=== PATIENT | male | born 1955 | race Hispanic/Latino ===

== ENCOUNTER → 2017-09-11 | Outpatient (CLI) | payer OTHER ==
[~2017-09-11] MED LIST: FENTANYL CITRATE/PF 100MCG/2 ML INJ ONE; GABAPENTIN400 MG PO; GELATIN SPONGE 12-7MM ONE; LISINOPRIL10 MG PO; MELOXICAM7.5 MG PO; METOPROLOL SUCC25 MG PO; MIDAZOLAM HCL 2 MG/2 ML VIAL ONE; SIMVASTATIN20 MG PO; TRAMADOL; TRAZODONE HCL100 MG PO
[2017-09-11 08:49] LABS: BASOPHILS % 0.3 % (0.0-1.0); EOSINOPHILS # (AUTO) 0.3 (0.0-0.4); EOSINOPHILS % 3.1 % (0.0-6.0); HEMATOCRIT 34.3 % (38.2-49.6); HEMOGLOBIN 12.3 g/dL (14.0-18.0); LYMPHOCYTES # (AUTO) 2.7 (1.0-3.2); LYMPHOCYTES % 30.6 % (18.0-39.1); MEAN CORPUSCULAR HEMOGLOBIN 33.7 pg (28-32); MEAN CORPUSCULAR HGB CONC 35.9 g/dL (31-35); MONOCYTES # (AUTO) 0.8 (0.2-0.8); MONOCYTES % 9.4 % (4.4-11.3); NEUTROPHILS % 55.9 % (38.7-80.0); PLATELET COUNT 278 x10e3/uL (140-360); RED BLOOD COUNT 3.65 x10e6/uL (4.3-5.7); RED CELL DISTRIBUTION WIDTH 12.1 % (11.7-14.4)
[2017-09-11 09:02] LABS: INR 0.99; PROTHROMBIN TIME 12.3 seconds (11.9-14.5)
--- NOTE | 2017-09-11 12:07 | Diagnostic Imaging Report ---
PROCEDURE:CT GUIDED NEEDLE PLACEMENT COMPARISON:None. Preprocedure diagnosis: Left femoral sclerotic lesion, suspect enchondroma Post procedure diagnosis: Left femoral sclerotic lesion, suspect enchondroma Sedation/anesthesia: 1.5 mg Versed intravenous, 100 mcg fentanyl intravenous. The patient's heart rate and pulse oximetry were continuously monitored by the interventional radiology nurse. Blood pressure was monitored at 5 minute intervals. Additional medications: Lidocaine 1% for local anesthesia Estimated blood loss: Less than 5 cc Blood products administered: None Specimens: 11 gauge core biopsy of left femur sclerotic lesion Implants/grafts: None Fluoroscopy time: None DLP 1644.78 mGy cm Contrast used: None Complications: No immediate Condition at completion of procedure: Stable Disposition: Radiology holding FINDINGS: Informed consent for the procedure was obtained from the patient and documented in the medical record after discussion of risks and benefits. The patient was placed in the supine position on the CT couch. A marker grid was placed on the left femur and limited flight control manager tomogram was performed. A suitable percutaneous approach to the sclerotic lesion in the medullary space of the mid shaft of the femur was identified and the overlying skin was prepped and draped in the standard sterile fashion. 1% lidocaine was infiltrated into the skin, subcutaneous tissues, and along the periosteum. Under intermittent CT guidance, an 11 gauge Jamshidi bone biopsy needle was advanced to the cortex. Attempts to penetrate the intact cortex manually and using a sterile surgical mallet were unsuccessful. Therefore, a sterile electrical orthopedic drill (2.5 mm bit) was used to penetrate the cortex overlying the sclerotic medullary lesion. The drill bit was removed and the Jamshidi needle was then advanced by approximately 1.5 cm into the lesion and used to obtain an intact core biopsy specimen, which was placed in formalin. A sterile dressing was applied. The patient tolerated the procedure well without immediate complication. CONCLUSION: Successful CT-guided core biopsy of a sclerotic lesion in the medullary space of the left femoral diaphysis. Dictated by: Guru Messina M.D. on 09/11/2017 at 12:09 Electronically approved by: Guru Messina M.D. on 09/11/2017 at 12:09
== END ==
LOC: CT 08:06
PROVIDERS: ATTEND Specialist
DX: R22.42 Localized swelling, mass and lump, left lower limb (principal)
CPT/HCPCS: 20225; 36415; 77012; 85025; 85610; 85730; 88307; 88311; J2250; 88305

== ENCOUNTER 2020-06-04 06:23 | Observation (INO) | payer MEDICARE ==
[2020-06-02 15:32] LABS: BASOPHILS % 0.4 % (0.0-1.0); EOSINOPHILS # (AUTO) 0.4 (0.0-0.4); EOSINOPHILS % 4.4 % (0.0-6.0); HEMATOCRIT 38.3 % (38.2-49.6); HEMOGLOBIN 13.1 g/dL (14.0-18.0); LYMPHOCYTES # (AUTO) 3.7 (1.0-3.2); LYMPHOCYTES % 41.6 % (18.0-39.1); MEAN CORPUSCULAR HEMOGLOBIN 34.6 pg (28-32); MEAN CORPUSCULAR HGB CONC 34.2 g/dL (31-35); MEAN CORPUSCULAR VOLUME 101.1 fL (81-99); MONOCYTES # (AUTO) 0.8 (0.2-0.8); MONOCYTES % 9.2 % (4.4-11.3); NEUTROPHILS # (AUTO) 3.9 (2.1-6.9); NEUTROPHILS % 43.8 % (38.7-80.0); PLATELET COUNT 295 x10e3/uL (140-360); RED BLOOD COUNT 3.79 x10e6/uL (4.3-5.7); RED CELL DISTRIBUTION WIDTH 12.7 % (11.7-14.4)
[2020-06-02 15:41] LABS: INR 0.92; PROTHROMBIN TIME 12.9 seconds (11.9-14.5)
[2020-06-02 15:42] LABS: PARTIAL THROMBOPLASTIN TIME 27.4 seconds (23.8-35.5)
[2020-06-02 15:48] LABS: ANION GAP 16.4 mmol/L (8-16); BLOOD UREA NITROGEN 8 mg/dL (7-26); BUN/CREATININE RATIO 10 (6-25); CALCIUM 9.4 mg/dL (8.4-10.2); CARBON DIOXIDE 23 mmol/L (22-29); CHLORIDE 98 mmol/L (98-107); CREATININE, SERUM 0.81 mg/dL (0.72-1.25); EST GLOMERULAR FILTRATION RATE > 60 ML/MIN (60-); GLUCOSE 86 mg/dL (74-118); POTASSIUM 4.4 mmol/L (3.5-5.1); SODIUM 133 mmol/L (136-145)
[~2020-06-04] VITALS: Ht 172.7 cm; Wt 73.0 kg
[~2020-06-04 06:23] MED LIST changes: +ATORVASTATIN CA20 MG PO; +CENTRUM ADULTS1 EACH PO; -FENTANYL CITRATE/PF 100MCG/2 ML INJ ONE; -GELATIN SPONGE 12-7MM ONE; +HYDROCODON-ACE1 EA11 PO; -MIDAZOLAM HCL 2 MG/2 ML VIAL ONE
[2020-06-04] MEDS ORDERED: THROMBIN FOR SOLN 5,000 UNIT VIAL ONE (06:46)
[2020-06-04] MEDS ORDERED: LIDOCAINE 1% W/EPINEPHRINE 20 ML VIAL ONE (06:46)
[2020-06-04] MEDS ORDERED: VANCOMYCIN HCL 1 GM VIAL ONE (06:46)
[2020-06-04] MEDS ORDERED: CEFAZOLIN SOD 1 GM/NS 50ML 100 ML IV ONE (07:01)
[2020-06-04] MEDS ORDERED: LIDOCAINE HCL (LTA) 4 ML SOLN ONE (07:16)
[2020-06-04] MEDS ORDERED: IBUPROFEN 800 MG/200 ML IV ONE (07:16)
[2020-06-04] MEDS ORDERED: ACETAMINOPHEN 1000 MG/100 ML 100 ML IV ONE (07:16)
[2020-06-04] MEDS ORDERED: HYDROCODON-ACE1 EA12 PO (09:54)
[2020-06-04] MEDS ORDERED: MAGNESIUM/ALUMINUM/SIMETHICONE 30 ML UDC PO PRN (10:00)
[2020-06-04] MEDS ORDERED: HYDROMORPHONE 2MG/ML 2 MG/ML ML IV PRN (10:00)
[2020-06-04] MEDS ORDERED: ACETAMINOPHEN 325 MG TAB PO PRN (10:00)
[2020-06-04] MEDS ORDERED: PROMETHAZINE HCL (IM) 25 MG/ML VIAL IM PRN (10:00)
[2020-06-04] MEDS ORDERED: LACTATED RINGER'S 1,000 ML IV SCH (10:00)
[2020-06-04] MEDS ORDERED: CARISOPRODOL 350 MG TAB PO PRN (10:00)
[2020-06-04] MEDS ORDERED: ONDANSETRON HCL INJ 2MG/ML 2ML 2 MG/ML VIAL IV PRN (10:00)
[2020-06-04] MEDS ORDERED: MORPHINE SULFATE 5 MG/ML VIAL IM PRN (10:00)
[2020-06-04] MEDS ORDERED: OXYCODONE/ACETAMINOPHEN 5-325 1 EACH TABLET PO PRN (10:00)
[2020-06-04] MEDS ORDERED: FENTANYL CITRATE/PF 100MCG/2 ML INJ ONE (10:12)
[2020-06-04] MEDS ORDERED: HYDROMORPHONE 1MG/1ML INJ ONE (10:30)
[2020-06-04] MEDS ORDERED: LIDOCAINE HCL 2% LOCAL INJ 5 ML SDV VIAL INJ ONE (12:26)
[2020-06-04] MEDS ORDERED: ONDANSETRON HCL INJ 2MG/ML 2ML 2 MG/ML VIAL ONE (12:26)
[2020-06-04] MEDS ORDERED: LIDOCAINE HCL 2% JELLY 5 ML TUBE ONE (12:26)
[2020-06-04] MEDS ORDERED: SEVOFLURANE INHAL SOLN 250 ML PEN BTL ONE (12:26)
[2020-06-04] MEDS ORDERED: PROPOFOL IV EMULSION 10 MG/ML 20 ML VIAL ONE (12:26)
[2020-06-04] MEDS ORDERED: DEXAMETHASONE SOD PHOS INJ 4 MG/ML VIAL ONE (12:26)
[2020-06-04] MEDS ORDERED: NEOSTIGMINE 1 MG/ML 10ML VIAL ONE (12:26)
[2020-06-04] MEDS ORDERED: GLYCOPYRROLATE INJ 0.2 MG/ML VIAL ONE (12:26)
[2020-06-04 13:30] VITALS: BP 130/73
[2020-06-04 14:59] VITALS: BP 130/73
[2020-06-04 16:49] VITALS: BP 119/75
[2020-06-04] MEDS ORDERED: CEFAZOLIN SOD 1 GM/NS 50ML 50 ML IV SCH (17:00)
[2020-06-04] MEDS ORDERED: ZOLPIDEM TARTRATE 5 MG TAB PO PRN (21:00)
== END 2020-06-04 16:30 | disposition home or self-care (01) ==
LOC: OR 06:23 → PACU V 09:52 → MED/SURG 10:48
PROVIDERS: ADMIT Neurological Surgery; ATTEND Neurological Surgery
DX: M48.062 Spinal stenosis, lumbar region with neurogenic claudication (principal); M19.90 Unspecified osteoarthritis, unspecified site; I10 Essential (primary) hypertension; E78.5 Hyperlipidemia, unspecified; I44.0 Atrioventricular block, first degree; Z01.810 Encounter for preprocedural cardiovascular examination; Z01.812 Encounter for preprocedural laboratory examination; Z01.818 Encounter for other preprocedural examination; Z20.822 Contact with and (suspected) exposure to COVID-19
CPT/HCPCS: 36415; 63047; 63048; 71046; 72020; 80048; 85025; 85610; 85730; 86850; 86900; 88304; 88311; 93005; G0378; J0131; J0690; J1170 ×2; J3010; J3370; J7121; U0002; J1100; J2001; J2405; J2710

== ENCOUNTER 2024-10-25 10:53 | Inpatient (IN) | payer MEDICARE ==
[~2024-10-25] VITALS: Ht 172.7 cm; Wt 65.8 kg
[2024-10-25] VITALS (8 sets, daily range): BP systolic 84–133; BP diastolic 58–70; PULSE 78–90; RESP 8–18; TEMP 97.8–98.3; O2SAT 99–100
[~2024-10-25 10:53] MED LIST changes: +AMLODIPINE BESYL5 MG PO; +CALTRATE-600 W1 EACH PO; +DOXYCYCLINE HY100 MG PO; +FEROSUL325 MG PO; +FLOMAX0.4 MG PO; +FUROSEMIDE20 MG PO; +HYDROCODON-ACE1 EA12 PO; +HYDROCODON-ACE1 EAC9 PO; +NORVASC10 MG PO; +ONDANSETRON ODT4 MG PO; +POTASSIUM CHLO20 ME1 PO
[2024-10-25 12:33] LABS: BASOPHILS % 0.2 % (0.0-1.0); EOSINOPHILS # (AUTO) 0.1 (0.0-0.4); EOSINOPHILS % 0.5 % (0.0-6.0); HEMATOCRIT 33.2 % (38.2-49.6); HEMOGLOBIN 10.9 g/dL (14.0-18.0); LYMPHOCYTES # (AUTO) 1.1 (1.0-3.2); LYMPHOCYTES % 5.7 % (18.0-39.1); MEAN CORPUSCULAR HGB CONC 32.8 g/dL (31-35); MEAN CORPUSCULAR VOLUME 106.8 fL (81-99); MONOCYTES # (AUTO) 1.9 (0.2-0.8); NEUTROPHILS # (AUTO) 15.4 (2.1-6.9); NEUTROPHILS % 82.7 % (38.7-80.0); PLATELET COUNT 126 x10e3/uL (140-360); RED BLOOD COUNT 3.11 x10e6/uL (4.3-5.7); RED CELL DISTRIBUTION WIDTH 16.4 % (11.7-14.4); WHITE BLOOD COUNT 18.65 x10e3/uL (4.8-10.8)
[2024-10-25 12:35] LABS: INR 1.07; PROTHROMBIN TIME 14.9 seconds (11.9-14.5)
[2024-10-25 12:44] LABS: ALANINE AMINOTRANSFERASE 11 IU/L (0-55); ALBUMIN/GLOBULIN RATIO 0.6 (0.8-2.0); ALKALINE PHOSPHATASE 158 IU/L (40-150); ANION GAP 17.6 mmol/L (8-16); BILIRUBIN,TOTAL 0.7 mg/dL (0.2-1.2); BLOOD UREA NITROGEN 40 mg/dL (7-26); BUN/CREATININE RATIO 45 (6-25); CALCIUM 7.9 mg/dL (8.4-10.2); CARBON DIOXIDE 20 mmol/L (22-29); CHLORIDE 97 mmol/L (98-107); CREATININE, SERUM 0.89 mg/dL (0.72-1.25); EST GLOMERULAR FILTRATION RATE 94 ML/MIN (>=60); GLUCOSE 117 mg/dL (74-118); MAGNESIUM 2.2 MG/DL (1.3-2.1); SODIUM 129 mmol/L (136-145); TOTAL PROTEIN 5.4 g/dL (6.5-8.1)
[2024-10-25 12:50] LABS: POTASSIUM 5.6 mmol/L (3.5-5.1)
[2024-10-25 12:53] LABS: TROPONIN I < 0.001 ng/mL (0-0.300)
[2024-10-25] MEDS: SODIUM BICARBONATE 8.4% INJ 50 ML SYR IV STA (13:51)
[2024-10-25] MEDS: SODIUM CHLORIDE 0.9% 500ML 500 ML IV ONE (13:51)
[2024-10-25] MEDS: DEXTROSE 50% SYRINGE 50 ML IV STA (13:56)
[2024-10-25] MEDS: INSULIN REGULAR, HUMAN 100 UNIT/1 ML IV ONE (14:00)
[2024-10-25 15:05] LABS: BODY FLUID TYPE PLEURAL
[2024-10-25 15:06] LABS: BODY FLUID APPEARANCE CLOUDY; BODY FLUID COLOR RED
[2024-10-25 15:09] LABS: WBC,BODY FLUID 549 cells/uL
[2024-10-25 15:10] LABS: RBC,BODY FLUID 179 cells/uL; TOTAL CELLS COUNTED (DIFF) 100
[2024-10-25 16:42] LABS: NEUTROPHILS,BODY FLUID 80 %
[2024-10-25 16:43] LABS: LYMPHOCYTES,BODY FLUID 10 %; MONO/MACROPHG,BODY FLUID 6 %; OTHER CELLS,BODY FLUID 4 %
[2024-10-25] MEDS ORDERED: FUROSEMIDE40 MG PO (17:33)
[2024-10-25] MEDS ORDERED: FLOMAX0.4 MG PO (17:33)
[2024-10-25] MEDS: ATORVASTATIN 20 MG TAB PO SCH (19:28)
[2024-10-25] MEDS: HYDROCODONE/APAP 10MG-325MG TAB PO PRN (19:28)
[2024-10-25] MEDS ORDERED: ZOLPIDEM TARTRATE 5 MG TAB PO PRN (21:00)
[2024-10-26] VITALS (12 sets, daily range): BP systolic 89–117; BP diastolic 51–68; PULSE 79–96; RESP 10–22; TEMP 97.4–97.5; O2SAT 92–100
[2024-10-26 06:44] LABS: BASOPHILS % 0.2 % (0.0-1.0); EOSINOPHILS # (AUTO) 0.1 (0.0-0.4); EOSINOPHILS % 0.9 % (0.0-6.0); HEMATOCRIT 34.9 % (38.2-49.6); HEMOGLOBIN 11.5 g/dL (14.0-18.0); LYMPHOCYTES # (AUTO) 1.3 (1.0-3.2); MEAN CORPUSCULAR HEMOGLOBIN 35.4 pg (28-32); MEAN CORPUSCULAR VOLUME 107.4 fL (81-99); MONOCYTES # (AUTO) 1.4 (0.2-0.8); MONOCYTES % 9.8 % (4.4-11.3); NEUTROPHILS # (AUTO) 11.1 (2.1-6.9); NEUTROPHILS % 79.2 % (38.7-80.0); PLATELET COUNT 120 x10e3/uL (140-360); RED BLOOD COUNT 3.25 x10e6/uL (4.3-5.7); RED CELL DISTRIBUTION WIDTH 16.6 % (11.7-14.4); WHITE BLOOD COUNT 13.95 x10e3/uL (4.8-10.8)
[2024-10-26 06:56] LABS: ALBUMIN 1.7 g/dL (3.5-5.0); ALBUMIN/GLOBULIN RATIO 0.5 (0.8-2.0); ANION GAP 15.8 mmol/L (8-16); BILIRUBIN,TOTAL 0.9 mg/dL (0.2-1.2); CALCIUM 8.2 mg/dL (8.4-10.2); CREATININE, SERUM 0.91 mg/dL (0.72-1.25); TOTAL PROTEIN 5.1 g/dL (6.5-8.1)
[2024-10-26 07:03] LABS: POTASSIUM 5.8 mmol/L (3.5-5.1)
[2024-10-26] MEDS ORDERED: SOD POLYSTYRENE SULFONATE SUSP 15 GM/60 ML BTL PO ONE (09:45)
[2024-10-26] MEDS: DEXTROSE 50% SYRINGE 50 ML IV STA (09:53)
[2024-10-26] MEDS: SODIUM BICARBONATE 8.4% INJ 50 ML SYR IV STA (09:53)
[2024-10-26] MEDS: INSULIN REGULAR, HUMAN 100 UNIT/1 ML IV ONE (09:54)
[2024-10-26] MEDS ORDERED: DEXTROSE 50% SYRINGE 50 ML IV SCH (10:00)
[2024-10-26] MEDS ORDERED: SODIUM BICARBONATE 8.4% INJ 50 ML SYR IV SCH (10:00)
[2024-10-26] MEDS ORDERED: SOD POLYSTYRENE SULFONATE SUSP 15 GM/60 ML BTL PO SCH (10:00)
[2024-10-26] MEDS ORDERED: INSULIN REGULAR, HUMAN 100 UNIT/1 ML IV SCH (10:00)
[2024-10-26] MEDS ORDERED: IOPAMIDOL 370 MG/ML 100 ML INFUS..BTL INJ ONE (11:39)
[2024-10-27] VITALS (9 sets, daily range): BP systolic 83–127; BP diastolic 47–73; PULSE 84–98; RESP 9–19; TEMP 98–98.2; O2SAT 84–100
[2024-10-27] MEDS: LORAZEPAM 0.5 MG TAB PO PRN (09:57)
[2024-10-27 12:42] LABS: BASOPHILS % 0.1 % (0.0-1.0); EOSINOPHILS # (AUTO) 0.1 (0.0-0.4); EOSINOPHILS % 0.4 % (0.0-6.0); HEMATOCRIT 28.8 % (38.2-49.6); HEMOGLOBIN 9.6 g/dL (14.0-18.0); LYMPHOCYTES % 7.2 % (18.0-39.1); MEAN CORPUSCULAR HGB CONC 33.3 g/dL (31-35); MEAN CORPUSCULAR VOLUME 105.1 fL (81-99); MONOCYTES # (AUTO) 1.3 (0.2-0.8); MONOCYTES % 8.7 % (4.4-11.3); NEUTROPHILS # (AUTO) 11.9 (2.1-6.9); NEUTROPHILS % 82.7 % (38.7-80.0); RED BLOOD COUNT 2.74 x10e6/uL (4.3-5.7); RED CELL DISTRIBUTION WIDTH 16.8 % (11.7-14.4); WHITE BLOOD COUNT 14.44 x10e3/uL (4.8-10.8)
[2024-10-27 12:46] LABS: PLATELET COUNT 86 x10e3/uL (140-360)
[2024-10-27 13:03] LABS: ALBUMIN 1.3 g/dL (3.5-5.0); ALBUMIN/GLOBULIN RATIO 0.4 (0.8-2.0); ANION GAP 12.1 mmol/L (8-16); BILIRUBIN,TOTAL 0.7 mg/dL (0.2-1.2); CREATININE, SERUM 0.71 mg/dL (0.72-1.25); TOTAL PROTEIN 4.3 g/dL (6.5-8.1)
[2024-10-27 13:06] LABS: POTASSIUM 3.1 mmol/L (3.5-5.1)
[2024-10-27 13:07] LABS: CALCIUM 5.9 mg/dL (8.4-10.2)
[2024-10-27] MEDS: ONDANSETRON HCL 4 MG ORAL DISINTEGRATING TAB PO PRN (16:36)
[2024-10-28] VITALS (34 sets, daily range): BP systolic 61–129; BP diastolic 44–86; PULSE 67–108; RESP 11–32; TEMP 96.5–98.4; O2SAT 86–100
[2024-10-28 06:49] LABS: BASOPHILS % 0.2 % (0.0-1.0); EOSINOPHILS # (AUTO) 0.1 (0.0-0.4); EOSINOPHILS % 0.4 % (0.0-6.0); HEMATOCRIT 32.6 % (38.2-49.6); HEMOGLOBIN 10.8 g/dL (14.0-18.0); LYMPHOCYTES # (AUTO) 1.1 (1.0-3.2); LYMPHOCYTES % 7.2 % (18.0-39.1); MEAN CORPUSCULAR HEMOGLOBIN 35.1 pg (28-32); MEAN CORPUSCULAR HGB CONC 33.1 g/dL (31-35); MEAN CORPUSCULAR VOLUME 105.8 fL (81-99); MONOCYTES # (AUTO) 1.5 (0.2-0.8); MONOCYTES % 9.7 % (4.4-11.3); NEUTROPHILS # (AUTO) 12.6 (2.1-6.9); NEUTROPHILS % 81.5 % (38.7-80.0); PLATELET COUNT 110 x10e3/uL (140-360); RED BLOOD COUNT 3.08 x10e6/uL (4.3-5.7); RED CELL DISTRIBUTION WIDTH 16.7 % (11.7-14.4)
[2024-10-28 07:21] LABS: ALBUMIN 1.6 g/dL (3.5-5.0); ALBUMIN/GLOBULIN RATIO 0.5 (0.8-2.0); ANION GAP 15.1 mmol/L (8-16); CALCIUM 7.3 mg/dL (8.4-10.2); CREATININE, SERUM 0.87 mg/dL (0.72-1.25)
[2024-10-28 07:22] LABS: POTASSIUM 3.1 mmol/L (3.5-5.1)
[2024-10-28 08:18] LABS: TOTAL PROTEIN,BODY FLUID 2.4 g/dL
[2024-10-28] MEDS: POTASSIUM CHLORIDE 20 MEQ TAB CR PO STA (10:50)
[2024-10-28] MEDS: SODIUM CHLORIDE 1 GM TAB PO SCH (14:26)
[2024-10-28 20:08] LABS: BASOPHILS % 0.1 % (0.0-1.0); EOSINOPHILS # (AUTO) 0.1 (0.0-0.4); EOSINOPHILS % 0.3 % (0.0-6.0); HEMATOCRIT 33.6 % (38.2-49.6); HEMOGLOBIN 11.3 g/dL (14.0-18.0); LYMPHOCYTES # (AUTO) 1.5 (1.0-3.2); LYMPHOCYTES % 6.8 % (18.0-39.1); MEAN CORPUSCULAR HEMOGLOBIN 34.8 pg (28-32); MEAN CORPUSCULAR HGB CONC 33.6 g/dL (31-35); MEAN CORPUSCULAR VOLUME 103.4 fL (81-99); MONOCYTES % 9.4 % (4.4-11.3); NEUTROPHILS # (AUTO) 17.7 (2.1-6.9); NEUTROPHILS % 82.5 % (38.7-80.0); PLATELET COUNT 145 x10e3/uL (140-360); RED BLOOD COUNT 3.25 x10e6/uL (4.3-5.7); RED CELL DISTRIBUTION WIDTH 16.6 % (11.7-14.4); WHITE BLOOD COUNT 21.47 x10e3/uL (4.8-10.8)
[2024-10-28] MEDS: FUROSEMIDE INJ 10 MG/ML 4 ML VIAL IV SCH (20:17)
[2024-10-28 20:22] LABS: ALBUMIN 1.7 g/dL (3.5-5.0); ALBUMIN/GLOBULIN RATIO 0.4 (0.8-2.0); ANION GAP 17.5 mmol/L (8-16); BILIRUBIN,TOTAL 0.8 mg/dL (0.2-1.2); CALCIUM 7.4 mg/dL (8.4-10.2); CREATININE, SERUM 1.08 mg/dL (0.72-1.25); POTASSIUM 3.5 mmol/L (3.5-5.1); TOTAL PROTEIN 5.5 g/dL (6.5-8.1)
[2024-10-28 20:28] LABS: TROPONIN I 0.011 ng/mL (0-0.300)
[2024-10-28 20:41] LABS: ABG HCO3 24 mmol/L (22-26); ABG PCO2 39 mmHg (35-45); ABG PO2 429 mmHg (80-105); ABG TCO2 25
[2024-10-28] MEDS: DEXMEDETOMIDINE 400MCG/NS100ML 100 ML IV PRN (21:14)
[2024-10-28] MEDS: SODIUM CHLORIDE 0.9% 1000ML 1,000 ML IV ONE (23:42)
[2024-10-29] VITALS (82 sets, daily range): BP systolic 67–120; BP diastolic 39–82; PULSE 25–129; RESP 5–28; TEMP 97.2–97.7; O2SAT 88–100
[2024-10-29] MEDS: NOREPINEPHRINE 8 MG/D5W 250 ML 250 ML IV SCH (01:13)
[2024-10-29] MEDS: SODIUM CHLORIDE 0.9% 1000ML 1,000 ML IV ONE (01:48)
[2024-10-29] MEDS: Vancomycin IV 1 GM in SODIUM CHLORIDE 0.9% 250ML 250 ML IV ONE (01:48)
[2024-10-29 07:16] LABS: ANION GAP 13.4 mmol/L (8-16); CALCIUM 7.1 mg/dL (8.4-10.2); CREATININE, SERUM 1.01 mg/dL (0.72-1.25)
[2024-10-29 07:19] LABS: BASOPHILS % 0.2 % (0.0-1.0); EOSINOPHILS # (AUTO) 0.1 (0.0-0.4); EOSINOPHILS % 0.6 % (0.0-6.0); HEMATOCRIT 32.7 % (38.2-49.6); LYMPHOCYTES # (AUTO) 1.5 (1.0-3.2); LYMPHOCYTES % 7.5 % (18.0-39.1); MEAN CORPUSCULAR HEMOGLOBIN 34.9 pg (28-32); MEAN CORPUSCULAR HGB CONC 33.6 g/dL (31-35); MEAN CORPUSCULAR VOLUME 103.8 fL (81-99); MONOCYTES % 9.9 % (4.4-11.3); NEUTROPHILS # (AUTO) 16.2 (2.1-6.9); NEUTROPHILS % 80.8 % (38.7-80.0); PLATELET COUNT 135 x10e3/uL (140-360); RED BLOOD COUNT 3.15 x10e6/uL (4.3-5.7); RED CELL DISTRIBUTION WIDTH 16.7 % (11.7-14.4); WHITE BLOOD COUNT 19.97 x10e3/uL (4.8-10.8)
[2024-10-29 07:25] LABS: POTASSIUM 3.4 mmol/L (3.5-5.1)
[2024-10-29 14:00] LABS: BODY FLUID APPEARANCE TURBID; BODY FLUID COLOR RED; BODY FLUID TYPE PLEURAL; RBC,BODY FLUID 114000 cells/uL; WBC,BODY FLUID 556 cells/uL
[2024-10-29] MEDS: SODIUM CHLORIDE 0.9% 1000ML 1,000 ML IV SCH (15:33)
[2024-10-29 16:20] LABS: LYMPHOCYTES,BODY FLUID 18 %; MONO/MACROPHG,BODY FLUID 12 %; NEUTROPHILS,BODY FLUID 70 %; TOTAL CELLS COUNTED (DIFF) 100
[2024-10-29] MEDS: POTASSIUM CHLORIDE 20 MEQ TAB CR PO STA (18:17)
[2024-10-29] MEDS: CALCIUM CARBONATE 500 MG CHEWABLE TABS PO SCH (20:06)
[2024-10-30] VITALS (93 sets, daily range): BP systolic 76–164; BP diastolic 43–91; PULSE 67–114; RESP 9–32; TEMP 97.2–98; O2SAT 77–100
[2024-10-30 06:50] LABS: ANION GAP 15.6 mmol/L (8-16); CALCIUM 7.4 mg/dL (8.4-10.2); CREATININE, SERUM 0.93 mg/dL (0.72-1.25); POTASSIUM 3.6 mmol/L (3.5-5.1)
[2024-10-30] MEDS: ALBUMIN 25% 25GM 100ML 0.25 GM/ML BTL IV ONE (08:32)
[2024-10-30] MEDS: CALCIUM GLUC 1 G/50 ML NACL 50 ML IV ONE (08:32)
[2024-10-30 10:49] LABS: ABG HCO3 22 mmol/L (22-26); ABG PCO2 39 mmHg (35-45); ABG PH 7.35 (7.35-7.45); ABG PO2 72 mmHg (80-105); ABG TCO2 23
[2024-10-30 14:01] LABS: INR 1.18
[2024-10-30 15:04] LABS: TOTAL PROTEIN,BODY FLUID 1.9 g/dL
[2024-10-30] MEDS: ONDANSETRON HCL INJ 2MG/ML 2ML 2 MG/ML VIAL IV PRN (17:10)
[2024-10-31] VITALS (79 sets, daily range): BP systolic 64–167; BP diastolic 34–123; PULSE 64–118; RESP 11–34; TEMP 97.1–97.7; O2SAT 65–100
[2024-10-31 06:17] LABS: BASOPHILS % 0.1 % (0.0-1.0); EOSINOPHILS # (AUTO) 0.1 (0.0-0.4); EOSINOPHILS % 0.2 % (0.0-6.0); HEMATOCRIT 32.4 % (38.2-49.6); HEMOGLOBIN 10.7 g/dL (14.0-18.0); LYMPHOCYTES # (AUTO) 1.1 (1.0-3.2); LYMPHOCYTES % 4.9 % (18.0-39.1); MEAN CORPUSCULAR HEMOGLOBIN 34.6 pg (28-32); MEAN CORPUSCULAR VOLUME 104.9 fL (81-99); MONOCYTES % 9.3 % (4.4-11.3); NEUTROPHILS # (AUTO) 18.2 (2.1-6.9); NEUTROPHILS % 84.2 % (38.7-80.0); PLATELET COUNT 94 x10e3/uL (140-360); RED BLOOD COUNT 3.09 x10e6/uL (4.3-5.7); RED CELL DISTRIBUTION WIDTH 16.5 % (11.7-14.4); WHITE BLOOD COUNT 21.62 x10e3/uL (4.8-10.8)
[2024-10-31 06:53] LABS: ALBUMIN 1.9 g/dL (3.5-5.0); ALBUMIN/GLOBULIN RATIO 0.7 (0.8-2.0); ANION GAP 16.4 mmol/L (8-16); BILIRUBIN,TOTAL 0.9 mg/dL (0.2-1.2); CREATININE, SERUM 1.12 mg/dL (0.72-1.25); TOTAL PROTEIN 4.7 g/dL (6.5-8.1)
[2024-10-31 06:54] LABS: POTASSIUM 3.4 mmol/L (3.5-5.1)
[2024-10-31] MEDS: SIMETHICONE 80 MG CHEW PO PRN (10:29)
[2024-10-31] MEDS: DEXMEDETOMIDINE 400MCG/NS100ML 100 ML IV PRN (16:26)
[2024-10-31] MEDS: SODIUM BICARBONATE 8.4% VIAL 50 ML in SODIUM CHLORIDE 0.45% 1,000 ML IV ONE (16:45)
[2024-10-31] MEDS: LORAZEPAM INJ 2 MG/ML VIAL IV ONE (17:34)
[2024-11-01] VITALS (27 sets, daily range): BP systolic 81–107; BP diastolic 46–70; PULSE 65–80; RESP 10–26; TEMP 97; O2SAT 98–100
[2024-11-01] MEDS: DEXMEDETOMIDINE 400MCG/NS100ML 100 ML IV PRN (02:22)
[2024-11-01] MEDS: FUROSEMIDE INJ 10 MG/ML 2 ML VIAL IV ONE (08:40)
[2024-11-01] MEDS: ALBUMIN 5% 0.05 GM/ML BTL IV ONE (08:40)
[2024-11-01] MEDS: LACTATED RINGER'S 1,000 ML INJ ONE (08:41)
[2024-11-01 09:00] LABS: BASOPHILS % 0.2 % (0.0-1.0); EOSINOPHILS # (AUTO) 0.1 (0.0-0.4); EOSINOPHILS % 0.4 % (0.0-6.0); HEMATOCRIT 28.9 % (38.2-49.6); HEMOGLOBIN 9.4 g/dL (14.0-18.0); LYMPHOCYTES % 7.8 % (18.0-39.1); MEAN CORPUSCULAR HEMOGLOBIN 34.4 pg (28-32); MEAN CORPUSCULAR HGB CONC 32.5 g/dL (31-35); MEAN CORPUSCULAR VOLUME 105.9 fL (81-99); MONOCYTES # (AUTO) 2.2 (0.2-0.8); MONOCYTES % 8.7 % (4.4-11.3); NEUTROPHILS # (AUTO) 20.7 (2.1-6.9); NEUTROPHILS % 81.6 % (38.7-80.0); PLATELET COUNT 99 x10e3/uL (140-360); RED BLOOD COUNT 2.73 x10e6/uL (4.3-5.7); RED CELL DISTRIBUTION WIDTH 16.7 % (11.7-14.4); WHITE BLOOD COUNT 25.36 x10e3/uL (4.8-10.8)
[2024-11-01] MEDS: MIDODRINE 2.5 MG TAB PO SCH (09:06)
[2024-11-01 09:32] LABS: ALBUMIN 1.6 g/dL (3.5-5.0); ALBUMIN/GLOBULIN RATIO 0.5 (0.8-2.0); ANION GAP 17.7 mmol/L (8-16); BILIRUBIN,TOTAL 0.9 mg/dL (0.2-1.2); CALCIUM 7.5 mg/dL (8.4-10.2); CREATININE, SERUM 1.43 mg/dL (0.72-1.25); POTASSIUM 3.7 mmol/L (3.5-5.1); TOTAL PROTEIN 4.7 g/dL (6.5-8.1)
[2024-11-01 10:49] LABS: BAND NEUTROPHILS % (MANUAL) 1 %; LYMPHOCYTES % (MANUAL) 8 % (19-48); MONOCYTES % (MANUAL) 10 % (3.4-9.0); NEUTROPHILS % (MANUAL) 81 % (40-74); PLATELET ESTIMATE SLIGHTLY DECREASED
[2024-11-01 10:50] LABS: PLATELET MORPHOLOGY COMMENT NORMAL; RBC MORPHOLOGY COMMENT NORMAL
[2024-11-18 06:06] LABS: ABG PH 7.4 (7.35-7.45)
== END 2024-11-01 15:40 | disposition hospice, inpatient (51) | DRG 180 ==
LOC: ER 11:11 → ERHOLD 13:22 → ICU 16:29 → MED/SURG2 10-28 15:41 → ICU 10-28 20:05
PROVIDERS: ADMIT Internal Medicine; ATTEND Internal Medicine
PROC: 4A033B1 Measurement of Arterial Pressure, Peripheral, Percutaneous Approach (ICD-10-PCS; principal; 2024-10-25)
PROC: 0W9B3ZX Drainage of Left Pleural Cavity, Percutaneous Approach, Diagnostic (ICD-10-PCS; 2024-10-25)
PROC: 0W9B3ZX Drainage of Left Pleural Cavity, Percutaneous Approach, Diagnostic (ICD-10-PCS; 2024-10-29)
PROC: 3E053XZ Introduction of Vasopressor into Peripheral Artery, Percutaneous Approach (ICD-10-PCS; 2024-10-29)
PROC: 0W9B3ZX Drainage of Left Pleural Cavity, Percutaneous Approach, Diagnostic (ICD-10-PCS; 2024-10-31)
DX: C34.90 Malignant neoplasm of unspecified part of unspecified bronchus or lung (principal); E43 Unspecified severe protein-calorie malnutrition; J69.0 Pneumonitis due to inhalation of food and vomit; J91.0 Malignant pleural effusion; I42.9 Cardiomyopathy, unspecified; I50.22 Chronic systolic (congestive) heart failure; C78.7 Secondary malignant neoplasm of liver and intrahepatic bile duct; E22.2 Syndrome of inappropriate secretion of antidiuretic hormone; E87.20 Acidosis, unspecified; N17.9 Acute kidney failure, unspecified; E87.5 Hyperkalemia; M54.9 Dorsalgia, unspecified; I11.0 Hypertensive heart disease with heart failure; R62.7 Adult failure to thrive; E87.6 Hypokalemia; E83.51 Hypocalcemia; E03.9 Hypothyroidism, unspecified; I95.9 Hypotension, unspecified; G89.29 Other chronic pain; D63.0 Anemia in neoplastic disease; Z66 Do not resuscitate; Z53.09 Procedure and treatment not carried out because of other contraindication; Z92.21 Personal history of antineoplastic chemotherapy; Z79.60 Long term (current) use of unspecified immunomodulators and immunosuppressants; Z88.1 Allergy status to other antibiotic agents
CPT/HCPCS: 32555; 36415; 36600; 71045; 71260; 74470; 80048; 80053; 82040; 82550; 82805; 82945; 82948; 83615; 83690; 83735; 83880; 83930; 83935; 84157; 84295; 84300; 84443; 84484; 85025; 85610; 85730; 87040; 87070; 87205; 88112; 88305; 88342; 89051; 93005; 93306; 94660; 94799; 99252; 99284; C1729; J1938; J2405; J2543; J7030; J7040; J7050; J7799; P9047; Q0162; Q9967

== ENCOUNTER 2024-11-01 15:48 | Inpatient (IN) | payer OTHER ==
[~2024-11-01] VITALS: Ht 172.7 cm; Wt 65.8 kg
[~2024-11-01 15:48] MED LIST changes: +FUROSEMIDE40 MG PO
[2024-11-01] MEDS: SCOPOLAMINE 1 MG PATCH TOP SCH (16:00)
[2024-11-01 16:14] VITALS: BP 59/40; PULSE 65; RESP 14; O2SAT 93
[2024-11-01 16:15] VITALS: BP 59/40; PULSE 65; RESP 14; O2SAT 93
[2024-11-01 16:22] VITALS: PULSE 83; RESP 23; O2SAT 97
[2024-11-01] MEDS: LORAZEPAM INJ 2 MG/ML VIAL IV PRN (16:26)
[2024-11-01] MEDS: Morphine 2mg Syringe 2 MG/ML SYR IV PRN (16:41)
[2024-11-01] MEDS: Morphine 2mg Syringe 2 MG/ML SYR IV ONE (17:24)
[2024-11-01] MEDS: LORAZEPAM INJ 2 MG/ML VIAL IV ONE (17:24)
[2024-11-01 18:34] VITALS: BP 57/39; PULSE 67; RESP 15; O2SAT 100
[2024-11-01 19:22] VITALS: PULSE 70; RESP 12; O2SAT 100
[2024-11-02 00:13] VITALS: BP 77/48; PULSE 93; RESP 12; O2SAT 100
[2024-11-02 00:54] VITALS: PULSE 93; RESP 12; O2SAT 100
[2024-11-02 03:07] VITALS: BP 76/49; PULSE 105; RESP 9; O2SAT 98
[2024-11-02 05:21] VITALS: BP 51/33; PULSE 82; RESP 8; O2SAT 83
== END 2024-11-02 09:25 | disposition expired | DRG 951 ==
LOC: ICU 15:48
PROVIDERS: ADMIT Internal Medicine; ATTEND Internal Medicine
DX: Z51.5 Encounter for palliative care (principal); Z66 Do not resuscitate
CPT/HCPCS: 94799; J2060; J2270